=== PATIENT | female | born 1990 | race African-American/Black ===

== ENCOUNTER 2017-10-09 12:23 | Emergency (ER) | payer OTHER ==
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
[2017-10-09 13:37] VITALS: BP 108/73
== END 2017-10-09 13:37 | disposition home or self-care (01) ==
LOC: EDUNIT# → ED 12:23
DX: R55 Syncope and collapse (principal); E86.0 Dehydration; F43.9 Reaction to severe stress, unspecified
CPT/HCPCS: 93005; 99283; 99284